=== PATIENT | male | born 1975 | race Hispanic/Latino ===

== ENCOUNTER 2021-08-19 13:38 | Emergency (ER) | payer BC ==
[~2021-08-19] VITALS: Ht 172.7 cm; Wt 86.2 kg
[2021-08-19] MEDS ORDERED: 0.9%NACL 1000ML 1,000 ML IV ONE (14:00)
[2021-08-19 14:14] LABS: BASOPHILS % (AUTO) 0.9 % (0.0-5.0); EOSINOPHILS % (AUTO) 1.5 % (0.0-8.0); HEMATOCRIT 46.7 % (42-54); LYMPHOCYTES % (AUTO) 33.9 % (21.0-51.0); MEAN CORPUSCULAR HEMOGLOBIN 29.1 pg (27.0-33.0); MEAN CORPUSCULAR VOLUME 85.5 fL (79-99); MONOCYTES % (AUTO) 10.5 % (3.0-13.0); NEUTROPHILS % (AUTO) 52.9 % (40.0-77.0); PLATELET COUNT (AUTO) 197 K/uL (130-400); RED BLOOD CELL COUNT(AUTO) 5.46 MIL/uL (4.50-6.20); WHITE BLOOD COUNT (AUTO) 3.4 K/uL (4.8-10.8)
[2021-08-19 14:26] LABS: CREATININE 1.2 mg/dL (0.5-1.5); POTASSIUM 3.9 mmol/L (3.5-5.1)
[2021-08-19] MEDS ORDERED: MECLIZINE HCL 25 MG TABLET PO ONE (14:30)
[2021-08-19] MEDS ORDERED: MAG/ALUM/SIMETH 30 ML UDCUP PO ONE (14:30)
[2021-08-19 14:32] LABS: APPEARANCE,URINE CLEAR (CLEAR); BILIRUBIN,URINE NEGATIVE (NEGATIVE); COLOR,URINE YELLOW (YELLOW); GLUCOSE, URINE (UA) NEGATIVE (NEGATIVE); KETONES,URINE NEGATIVE (NEGATIVE); LEUKOCYTE ESTERASE ,URINE NEGATIVE (NEGATIVE); NITRATE,URINE NEGATIVE (NEGATIVE); OCCULT BLOOD,URINE NEGATIVE (NEGATIVE); PROTEIN,URINE NEGATIVE (NEGATIVE); UROBILINOGEN,URINE 0.2 mg/dL (0.2-1.0)
[2021-08-19 14:34] LABS: ALBUMIN 4.4 g/dL (3.5-5.0); BILIRUBIN,TOTAL 0.7 mg/dL (0.2-1.0); TOTAL PROTEIN, SERUM 8.1 g/dL (6.0-8.3)
[2021-08-19] MEDS ORDERED: LIDOCAINE HCL 2% VISCOUS 15 ML UDCUP ONE (14:41)
[2021-08-19] MEDS ORDERED: DICYCLOMINE HCL 10 MG/5 ML ML PO ONE (14:42)
[2021-08-19] MEDS ORDERED: OMEP20CA12 PO (15:29)
[2021-08-19] MEDS ORDERED: MECL-226 PO (15:29)
[2021-08-19 16:03] VITALS: BP 148/100
== END 2021-08-19 16:03 | disposition home or self-care (01) ==
LOC: EDH 13:38
DX: K21.9 Gastro-esophageal reflux disease without esophagitis (principal); H81.10 Benign paroxysmal vertigo, unspecified ear; E78.00 Pure hypercholesterolemia, unspecified
CPT/HCPCS: 36415; 71045; 80053; 81003; 84484; 85025; 93005; 96360; 99284; J7030

== ENCOUNTER 2022-07-18 02:59 | Emergency (ER) | payer BC ==
[~2022-07-18] VITALS: Ht 175.3 cm; Wt 92.5 kg
[~2022-07-18 02:59] MED LIST: MECL-226 PO; OMEP20CA12 PO
[2022-07-18 03:00] VITALS: BP 159/99
[2022-07-18] MEDS ORDERED: AMOX500C2 PO (03:26)
[2022-07-18] MEDS ORDERED: IBUP-1493 PO (03:26)
[2022-07-18] MEDS ORDERED: AMOXICILLIN 500 MG CAPSULE PO ONE (03:40)
[2022-07-18] MEDS ORDERED: IBUPROFEN 400 MG TABLET ONE (03:41)
== END 2022-07-18 03:54 | disposition home or self-care (01) ==
LOC: EDH 02:59
DX: K08.89 Other specified disorders of teeth and supporting structures (principal)
CPT/HCPCS: 64400